=== PATIENT | female | born 1990 | race Caucasian/White ===

== ENCOUNTER 2017-08-09 02:12 | Emergency (ER) | payer BC ==
[2017-08-09] MEDS ORDERED: NS 0.9% 1000 ML* 1,000 ML IV ONE (03:13)
[2017-08-09] MEDS ORDERED: Metoclopramide IV* 5 MG/ML 2 ML VIAL IV SLOW PU ONE (03:13)
[2017-08-09] MEDS ORDERED: Lidocaine 2% VISCOUS* 15 ML UDC PO ONE (03:14)
[2017-08-09] MEDS ORDERED: Pantoprazole IV* 40 MG IV ONE (03:14)
[2017-08-09] MEDS ORDERED: Al Hydrox/Mg Hydrox/Simet LIQ* 30 ML UDC PO ONE (03:15)
[2017-08-09] MEDS ORDERED: SCOP/HYOS/ATR/PB(NF) 10 ML UDC PO ONE (03:15)
[2017-08-09 03:55] LABS: ABS Basophils 0 10^3/ul (0-0.2); ABS Eosinophils 0.1 10^3/ul (0-0.6); ABS Lymphocytes 0.6 10^3/ul (1.0-4.8); ABS Monocytes 0.2 10^3/ul (0-0.8); ABS Neutrophils 5.7 10^3/ul (1.5-7.7); ABS Nucleated RBC 0 10^3/ul; Eosinophil % 1.9 % (0-6); Hematocrit 38 % (35-47); Hemoglobin 12.7 g/dl (12.0-16.0); Lymphocyte % 9.8 % (25-47); Mean Corpuscular HGB Conc 34 g/dl (31-36); Mean Corpuscular Hemoglobin 29 pg (27-31); Mean Corpuscular Volume 87 fL (80-97); Mean Platelet Volume 8 um3 (7.4-10.4); Nucleated Red Blood Cells % 0; Platelet Count 204 10^3/ul (150-450); Red Blood Count 4.34 10^6/ul (4.0-5.4); Red Cell Distribution Width 13 % (10.5-15); White Blood Count 6.6 10^3/ul (3.5-10.8)
[2017-08-09 04:07] LABS: EGFR Non-African American 108.3 (>60)
[2017-08-09] MEDS ORDERED: Iohexol 300* (CONTRAST) 10 ML SDV IV ONE (04:45)
[2017-08-09] MEDS ORDERED: Ondansetron INJ* 2 MG/ML VIAL IV ONE (06:21)
[2017-08-09 06:53] VITALS: BP 112/70
--- NOTE | 2017-08-09 07:01 | ED ---
Yesenia Mancini Julia, scribed for Waldo Aguilar MD on 08/09/17 at 0309 . Abdominal Pain/Female - HPI Summary HPI Summary: This patient is a 27 year old F presenting to [facility] accompanied with a chief complaint of intermittent mid abdominal pain every 5 minutes radiating to epigastrium since 17:00 yesterday. Patient reports nausea. Patient denies vomiting or new back pain. The patient rates the pain 4/10 in severity. Symptoms aggravated by nothing. Symptoms alleviated by nothing. - History of Current Complaint Chief Complaint: EDAbdPain Stated Complaint: ABD PAIN Time Seen by Provider: 08/09/17 03:03 Hx Obtained From: Patient Onset/Duration: Sudden Onset, Lasting Days Timing: Intermittent Episode Lasting - 5 minutes Pain Intensity: 4 Pain Scale Used: 0-10 Numeric Location: Other - middle bilateral abdomen Radiates: Yes Radiates to: Other - epigastric Aggravating Factor(s): Nothing Alleviating Factor(s): Nothing Associated Signs and Symptoms: Positive: Nausea Allergies/Adverse Reactions: Allergies Allergy/AdvReac Type Severity Reaction Status Date / Time No Known Allergies Allergy Verified 08/09/17 02:24 PMH/Surg Hx/FS Hx/Imm Hx Opthamlomology History: Denies: Hx Legally Blind EENT History: Denies: Hx Deafness Infectious Disease History: No Infectious Disease History: Denies: Traveled Outside the [place] in Last 30 Days - Family History Known Family History: Positive: Cardiac Disease - Social History Occupation: Employed Full-time - works nights as riveting machine operator Review of Systems Positive: Abdominal Pain, Nausea. Negative: Vomiting Musculoskeletal: Negative - back pain All Other Systems Reviewed And Are Negative: Yes Physical Exam Triage Information Reviewed: Yes Vital Signs On Initial Exam: Initial Vitals Temp Pulse Resp BP Pulse Ox 99 F 109 20 130/78 97 08/09/17 02:23 08/09/17 02:23 08/09/17 02:23 08/09/17 02:23 08/09/17 02:23 Vital Signs Reviewed: Yes Appearance: Positive: Well-Appearing Skin: Positive: Skin Color Reflects Adequate Perfusion Head/Face: Positive: Normal Head/Face Inspection Eyes: Positive: Normal ENT: Positive: Normal ENT inspection Respiratory/Lung Sounds: Positive: Breath Sounds Present Cardiovascular: Positive: Normal Abdomen Description: Positive: Other: - epigastric tenderness Musculoskeletal: Positive: Normal Neurological: Positive: Normal Psychiatric: Positive: Normal AVPU Assessment: Alert Diagnostics - Vital Signs Vital Signs Temp Pulse Resp BP Pulse Ox 08/09/17 02:23 99 F 109 20 130/78 97 - Laboratory Result Diagrams: 08/09/17 03:44 08/09/17 03:44 Lab Statement: Any lab studies that have been ordered have been reviewed, and results considered in the medical decision making process. - CT A/P CT Interpretation Completed By: Radiologist - unremarkable. ED Physician has reviewed this report. Abdominal Pain Fem Course/Dx - Course Course Of Treatment: Patient presents with intermittent mid abdominal pain every 5 minutes radiating to epigastrium since 17:00 yesterday. Patient reports nausea. Patient denies vomiting or new back pain. A/P CT was unremarkable. Patient is given Zofran, Protinox, and IV fluids. Patient is discharged is dx of nonspecific abdominal pain - Diagnoses Provider Diagnoses: Nonspecific abdominal pain Discharge - Discharge Plan Condition: Stable Disposition: HOME Prescriptions: Ondansetron [Zofran 8 MG Odt] 8 mg PO TID PRN #20 tab PRN Reason: Nausea/Vomiting Pantoprazole TAB (NF) [Protonix TAB (NF)] 40 mg PO DAILY #30 tab Patient Education Materials: Abdominal Pain (ED) Forms: *Work Release Referrals: No Primary Care Phys,NOPCP [Primary Care Provider] - Additional Instructions: Patient is given prescription for Zofran and Protonix. RETURN TO THE EMERGENCY DEPARTMENT FOR CHANGING OR WORSENING SYMPTOMS. The documentation as recorded by the Yesenia gómez Julia accurately reflects the service I personally performed and the decisions made by Lauren polanco Abdul, MD.
--- NOTE | 2017-08-09 07:54 | RAD ---
CLINICAL HISTORY: Epigastric pain COMPARISON: None TECHNIQUE: Multiple contiguous axial CT scans were obtained of the abdomen and pelvis after the administration of intravenous contrast. Coronal and sagittal multiplanar reformations are submitted for review. Oral contrast was administered. Delayed images were obtained through the abdomen and pelvis. FINDINGS: LUNG BASES: The lung bases are clear. LIVER: The liver is normal in shape, size, contour, and attenuation. BILE DUCTS: There is no intrahepatic or extrahepatic biliary dilatation. GALLBLADDER: The gallbladder is normal, without pericholecystic inflammatory change. PANCREAS: The pancreas is normal, without mass or ductal dilatation. SPLEEN: Normal in size and appearance. UPPER GI TRACT: Evaluation of the gastrointestinal tract is limited by incomplete gastric distention. The upper GI tract is unremarkable. SMALL BOWEL AND MESENTERY: The small bowel is normal in contour, course, and caliber. There is no obstruction or dilatation. There is minimal distention without dilatation of small bowel loops in the left upper abdomen as noted on the preliminary report. COLON: The colon is normal in contour, course, caliber. There is no pericolonic inflammatory change. ADRENALS: Normal bilaterally. KIDNEYS: The kidneys are normal in shape, size, contour, and axis. There is no hydronephrosis or nephrolithiasis. BLADDER: The bladder is smooth in contour. PELVIC ORGANS: The uterus and adnexa are grossly normal for technique. AORTA: The aorta is normal. IVC: Unremarkable LYMPH NODES: There is no lymphadenopathy by size criteria. ABDOMINAL WALL: There is no evidence for abdominal wall hernia. BONES AND SOFT TISSUES: The bones and soft tissues are unremarkable. OTHER: None IMPRESSION: NO ACUTE CT PATHOLOGY OF THE VISUALIZED ABDOMEN OR PELVIS.
== END 2017-08-09 06:53 | disposition home or self-care (01) ==
LOC: ED 02:12
DX: R10.9 Unspecified abdominal pain (principal); R11.0 Nausea
CPT/HCPCS: 36415; 74177; 80053; 82150; 83690; 84702; 85025; 86140; 96361; 96374; 96375; 99284; A9270-GY; J2405; J2765; Q9967

== ENCOUNTER 2017-12-28 01:30 | Emergency (ER) | payer SELFPAY ==
--- NOTE | 2017-12-28 02:07 | ED ---
Upper Extremity Pain - HPI Summary HPI Summary: Complains of dog bite yesterday to left elbow and upper arm. Patient was wearing 2 layers of long sleeves and denies puncture wounds. Patient has abrasions and swelling and redness to left upper arm. 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 Dog is unknown, and its vaccination status is unknown. Dog has been euthanized. Dog was unknown to patient's clinic as they were functioning only as the ER for that dog. Patient unsure who is the Vet for that dog. Patient states her clinic has initiated dog bite protocol paperwork with [facility]. Denies all other symptoms including fever, N/V, loss of range of motion in her left elbow, loss of sensation or function distally in left extremity. - History of Current Complaint Chief Complaint: EDAnimalBite Stated Complaint: DOG BITE Time Seen by Provider: 12/28/17 01:40 Hx Obtained From: Patient Mechanism Of Injury: Other Onset/Duration: Started Hours Ago Timing: Constant Severity Initially: Mild Severity Currently: Moderate Pain Location: Arm Character: Aching, Throbbing Aggravating Factor(s): Movement, Flexion Associated Signs & Symptoms: Positive: Swelling - mild, Bruising - Allergies/Home Medications Allergies/Adverse Reactions: Allergies Allergy/AdvReac Type Severity Reaction Status Date / Time No Known Allergies Allergy Verified 12/28/17 01:36 PMH/Surg Hx/FS Hx/Imm Hx Endocrine/Hematology History: Denies: Hx Anticoagulant Therapy, Hx Blood Disorders, Hx Blood Transfusions, Hx Bone Marrow Disease, Hx Diabetes, Hx Systemic Lupus Erythematosus, Hx Sickle Cell Disease, Hx Thyroid Disease, Hx Anemia, Hx Unexplained Bleeding, Hx Coagulopothy, Autoimmune Disease, Other Endocrine/Hematological Disorders GI History: Denies: Hx Cirrhosis, Hx Crohn's Disease, Hx Diverticulosis, Hx Gall Bladder Disease, Hx Gastroesophageal Reflux Disease, Hx Gastrointestinal Bleed, Hx Hiatal Hernia, Hx Irritable Bowel, Hx Jaundice, Hx Obstructive Bowel, Hx Ileostomy, Hx Pyloric Stenosis, Hx Ulcer, Hx Urosepsis, Other GI Disorders History: Denies: Hx Renal Disease Sensory History: Denies: Hx Legally Blind, Hx Deafness Opthamlomology History: Denies: Hx Legally Blind Neurological History: Denies: Hx CVA, Hx Dementia, Hx Developmental Delay, Hx Headaches, Hx Migraine, Hx Nerve Disease, Hx Peripheral Neuropathy, Hx Seizures, Hx Spinal Cord Injury, Hx Transient Ischemic Attacks (TIA), Hx CVP, Other Neuro Impairments/Disorders Infectious Disease History: No Infectious Disease History: Denies: Traveled Outside the [place] in Last 30 Days - Family History Known Family History: Positive: Cardiac Disease - Social History Occupation: Employed Full-time Alcohol Use: None Substance Use Type: Reports: None Smoking Status (MU): Never Smoked Tobacco Review of Systems Constitutional: Negative Eyes: Negative ENT: Negative Cardiovascular: Negative Respiratory: Negative Gastrointestinal: Negative Genitourinary: Negative Positive: Other Positive: Bruising Neurological: Negative Psychological: Normal All Other Systems Reviewed And Are Negative: Yes Physical Exam - Summary Physical Exam Summary: Mild abrasions to skin of lateral left upper arm just proximal to left elbow. No puncture wounds. Positive Surrounding ecchymosis. No erythema, extra warmth , decreased range of motion to left elbow or left wrist. PMS intact distally. Mild pain with flexion and extension of left elbow. Triage Information Reviewed: Yes Vital Signs On Initial Exam: Initial Vitals Temp Pulse Resp BP Pulse Ox 96.8 F 69 16 131/73 99 12/28/17 01:33 12/28/17 01:33 12/28/17 01:33 12/28/17 01:33 12/28/17 01:33 Vital Signs Reviewed: Yes Appearance: Positive: Well-Appearing Skin: Positive: Warm Head/Face: Positive: Normal Head/Face Inspection Eyes: Positive: Normal Neck: Positive: Supple Respiratory/Lung Sounds: Positive: Clear to Auscultation Cardiovascular: Positive: Normal Abdomen Description: Positive: Nontender Musculoskeletal: Positive: Normal Neurological: Positive: Normal Psychiatric: Positive: Normal AVPU Assessment: Alert - [place] Coma Scale Best Eye Response: 4 - Spontaneous Best Motor Response: 6 - Obeys Commands Best Verbal Response: 5 - Oriented Coma Scale Total: 15 Diagnostics - Vital Signs Vital Signs Temp Pulse Resp BP Pulse Ox 12/28/17 01:33 96.8 F 69 16 131/73 99 - Laboratory Lab Statement: Any lab studies that have been ordered have been reviewed, and results considered in the medical decision making process. Course/Dx - Course Course Of Treatment: Complains of dog bite yesterday to left elbow and upper arm. Patient was wearing 2 layers of long sleeves and denies puncture wounds. Patient has abrasions and swelling and redness to left upper arm. 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 Dog is unknown, and its vaccination status is unknown. Dog has been euthanized. Dog was unknown to patient's clinic as they were functioning only as the ER for that dog. Patient unsure who is the Vet for that dog. Patient states her clinic has initiated dog bite paperwork. Denies all other symptoms including fever, N/V, loss of range of motion in her left elbow, loss of sensation or function distally in left extremity. Mild abrasions to skin of lateral left upper arm just proximal to left elbow. No puncture wounds. Positive Surrounding ecchymosis. No erythema, extra warmth, decreased range of motion to left elbow or left wrist. PMS intact distally. Mild pain with flexion and extension of left elbow. Vital signs within normal limits. Started on Augmentin here in the ED. Rx for same. - Diagnoses Provider Diagnoses: Dog bite of arm Discharge - Sign-Out/Discharge Documenting (check all that apply): Discharge/Admit/Transfer - Discharge Plan Condition: Stable Disposition: HOME Prescriptions: Amoxicillin/Clavulanate TAB* [Augmentin TAB 875*] 875 mg PO BID #20 tab oxyCODONE TAB* [Roxycodone TAB 5 mg*] 5 mg PO Q6H PRN 2 Days #8 tab MDD 3-4 TABS PRN Reason: Pain Patient Education Materials: Animal Bite (ED) Referrals: Non Staff,Doctor [Primary Care Provider] - Additional Instructions: Follow-up with [facility] and primary care. Take antibiotics as directed. Return to the ED for any new or worsening symptoms - Billing Disposition and Condition Condition: STABLE Disposition: Home
[2017-12-28] MEDS ORDERED: Amoxicillin/Clavulanate TAB* 875 MG PO ONE (02:10)
[2017-12-28] MEDS ORDERED: oxyCODONE TAB* 5 MG TAB PO ONE (02:15)
[2017-12-28] MEDS ORDERED: oxyCODONE TAB* 5 MG TAB ONE (02:20)
[2017-12-28 02:28] VITALS: BP 125/79
== END 2017-12-28 02:26 | disposition home or self-care (01) ==
LOC: ED 01:30
DX: S41.152A Open bite of left upper arm, initial encounter (principal); W54.0XXA Bitten by dog, initial encounter; Y93.K9 Activity, other involving animal care; Y92.89 Other specified places as the place of occurrence of the external cause; Y99.0 Civilian activity done for income or pay
CPT/HCPCS: 99282; A9270-GY